=== PATIENT | female | born 1990 | race African-American/Black ===

== ENCOUNTER 2019-11-22 18:46 | Inpatient (IN) | payer SELFPAY ==
[~2019-11-22] VITALS: Ht 170.2 cm; Wt 104.0 kg
[2019-11-22 19:09] LABS: ARTERIAL BLD GAS O2 SATURATION 98.9 % (92-100); ARTERIAL BLD GAS TCO2 CT 23.3; ARTERIAL BLOOD GAS BASE EXCESS -3.3 (-2-2); ARTERIAL BLOOD GAS HCO3 22.1 meq/L (22-26); ARTERIAL BLOOD GAS PCO2 40.7 mmHg (35-45); ARTERIAL BLOOD GAS PO2 157.5 mmHg (80-100); ARTERIAL BLOOD GAS pH 7.35 (7.35-7.45)
[2019-11-22 19:23] LABS: ALANINE AMINOTRANSFERASE 18 U/L (4-34); ALBUMIN 3.7 gm/dL (3.5-5.0); ALKALINE PHOSPHATASE 52 U/L (50-136); ANION GAP 6 mmol/L (7-16); AST,SGOT 21 U/L (15-37); BILIRUBIN,TOTAL 0.4 mg/dL (0.0-1.0); BLOOD UREA NITROGEN 15 mg/dL (7-17); CALCIUM 7.7 mg/dL (8.4-10.2); CARBON DIOXIDE 22 mmol/L (22-30); CHLORIDE 110 mmol/L (98-107); CREATININE, serum 0.67 (0.52-1.25); GLUCOSE 120 mg/dL (74-106); LIPASE 105 U/L (23-300); POTASSIUM 3.3 mmol/L (3.4-5.0); SODIUM 139 mmol/L (137-145); TOTAL PROTEIN 6.6 gm/dL (6.4-8.2)
[2019-11-22 19:24] LABS: BASO % 0.4 % (0.0-2.0); EOS # 0.1 (0.0-0.7); GRAN # 3.5 (1.4-6.5); GRAN % 44.1 % (42.2-75.2); HEMOGLOBIN 10.6 g/dl (12.5-16.0); LYMPH # 3.6 (1.2-3.4); MEAN CELL VOLUME 89 fl (80.0-100.0); MEAN CORPUSCULAR HEMOGLOBIN 28 pg (27.0-31.0); MEAN CORPUSCULAR HGB CONC 31 g/dl (33.0-37.0); MEAN PLATELET VOLUME 9.8 fl (7.4-10.4); MONO # 0.7 (0.1-0.6); MONO % 8.2 % (1.7-9.3); PLATELET COUNT 374 K/mm3 (130-400); RED BLOOD COUNT 3.85 M/mm3 (4.10-5.30); REDCELL DISTRIBUTION WIDTH-CV 14.2 % (11.5-14.5)
[2019-11-22 19:35] LABS: TROPONIN-I < 0.012 ng/mL (0.000-0.035)
[2019-11-22 19:43] LABS: HEMATOCRIT 34.3 % (37.0-47.0)
[2019-11-22 19:48] LABS: INR 1.1 (0.8-3.0); PROTHROMBIN TIME 13.4 SECONDS (9.7-12.8)
[2019-11-22 22:08] VITALS: BP 144/43; PULSE 117; TEMP 98.6
--- NOTE | 2019-11-22 22:10 | NUR ---
Patient arrived from ER to medical floor at this time.
[2019-11-22] MEDS ORDERED: TYLENOL PM EXTR1 TA1 PO (22:19)
[2019-11-22] MEDS ORDERED: MULTI VITAMINS1 TAB PO (22:20)
--- NOTE | 2019-11-22 23:09 | NUR ---
Patient assessed. Peripheral IVs to bilateral ACs. Both sites without redness, warmth, swelling, and pain. Finished IV potassium. Denies SOB and dyspnea. Reports some tightness in chest, but overall much better. Currently on room air. Respirations even and unlabored. HRR. Telemetry in place: sinus tachycardia. Capillary refill less than 3 seconds. Non-tenting skin turgor. BSAx4. Abdomen soft and non-tender. No edema. Requested melatonin to help her sleep. Call placed to Dr. Buck, and new order received. Given as requested. Patient currently getting 1 L NS bolus per orders. Order received for general diet. Patient voices no questions, needs, or concerns at this time. Resting in bed with call light within reach.
[2019-11-23] VITALS: BP 158/50; PULSE 111; TEMP 98.2
--- NOTE | 2019-11-23 03:10 | NUR ---
Patient stated that her chest was feeling tighter. SPO2 100% RA. Respirations 26, shallow, labored. LS faint expiratory wheezing upper lobes. Called RT to give nebulizer treatment. Patient also stated that she was feeling anxious. Asked if she wanted PRN Ativan, and stated she did. Given as requested. Voices no further questions, needs, or concerns at this time. Receiving nebulizer treatment at this time. Call light is within reach.
[2019-11-23 03:38] VITALS: BP 130/52; PULSE 97; TEMP 98.6
--- NOTE | 2019-11-23 05:14 | NUR ---
Patient stated PRN Ativan and nebulizer treatment helped with chest. Patient is resting in bed with eyes closed at this time. Given snacks as requested.
[2019-11-23 06:25] LABS: COLLECTION METHOD CLEAN CATCH
[2019-11-23 06:34] LABS: PH 7 (5-8); URINE APPEARANCE Clear; URINE BACTERIA None Seen /hpf; URINE BILIRUBIN Negative (NEGATIVE); URINE BLOOD Negative (NEGATIVE); URINE COLOR Straw; URINE GLUCOSE Negative (NEGATIVE); URINE KETONE Negative (NEGATIVE); URINE LEUKOCYTE ESTERASE 2+ (NEGATIVE); URINE NITRATE Negative (NEGATIVE); URINE PROTEIN(semi-quant) Negative (NEGATIVE); URINE UROBILINOGEN Negative (NEGATIVE)
[2019-11-23 06:57] LABS: BASO % 0.1 % (0.0-2.0); EOS % 0.1 % (0-4.0); GRAN # 8.1 (1.4-6.5); GRAN % 89.7 % (42.2-75.2); HEMOGLOBIN 10.8 g/dl (12.5-16.0); LYMPH # 0.7 (1.2-3.4); LYMPH % 8.2 % (20.0-51.0); MEAN CELL VOLUME 89 fl (80.0-100.0); MEAN CORPUSCULAR HEMOGLOBIN 28 pg (27.0-31.0); MEAN CORPUSCULAR HGB CONC 32 g/dl (33.0-37.0); MEAN PLATELET VOLUME 9.5 fl (7.4-10.4); MONO # 0.1 (0.1-0.6); MONO % 1.6 % (1.7-9.3); PLATELET COUNT 323 K/mm3 (130-400); RED BLOOD COUNT 3.84 M/mm3 (4.10-5.30); REDCELL DISTRIBUTION WIDTH-CV 14.5 % (11.5-14.5)
[2019-11-23 07:01] LABS: HEMATOCRIT 34.1 % (37.0-47.0)
[2019-11-23 07:16] LABS: CALCIUM 8.6 mg/dL (8.4-10.2); CREATININE, serum 0.54 (0.52-1.25); POTASSIUM 4.3 mmol/L (3.4-5.0)
--- NOTE | 2019-11-23 10:53 | NUR ---
SANNA NOTE: PT AOX4. STEADY AMBULATION. REPORTS MILD TO MOD SOB WITH EXERTION. LCTA DIMINISHED. DENIES COUGH. REPORTS HEADACHE WITH HX OF MIGRAINES, DOC AWARE. NO OTHER CONCERNS
[2019-11-23 11:45] VITALS: BP 144/63; PULSE 103; TEMP 98.2
[2019-11-23] MEDS ORDERED: FLOVENT 44MCG I13 GM IH (12:36)
[2019-11-23] MEDS ORDERED: MEDROL 4MG DOSPA4 MG PO (12:36)
[2019-11-23] MEDS ORDERED: PROAIR HFA0.09 MG/AC IH (12:36)
--- NOTE | 2019-11-23 12:58 | NUR ---
Patient's nurse approached SW with concern about Pt not having insurance. SW contacted Patient by phone to complete intake for discharge planning. Patient currently lives in [place], and has been here for approximately 2 months. patient is employed with [employer], however she does not have insurance. patient did indicate that she had a DPOA, her sister Sabina [phone] who is also her care support and EMR. patient indicated that she did not have a PCP, nor did she had a place where she gets her medications at this time because she is new to the area. Patient did ask for assistance in locating a physician(She mentioned [facility]), medication information, fan mental health providers inthe area. SW printed off copies for [facility], [facility], [facility], and provided information about medical assistance for the area. LUCIA will continue to follow.
--- NOTE | 2019-11-23 13:45 | NUR ---
PT CALLED THIS NURSE STATING SHE IS EXPERIENCEING TOO MUCH ANXIETY BEING IN THE HOSPITAL AND IS UNABALE TO WITHSTAND BEING HERE WITHOUT FAMILY OR BOYFRIEND. RECNATED INITIAL DECISION TO REMAIN HOSPITALIZED AN DF/U WITH SCRAP CHARGER IN THE AM. PT IS AOX4. REFUSED PRN ATIVAN. STATES HEADACHE 09/22 AND STATES "I JUST WANT TO GO HOME BECAUSE I'VE BEEN THROUGH THIS BEFORE SINCE I WAS A CHILD AND CANNOT STAY IN HOSPITAL ALONE". DR MCCLENDON NOTIFIED AND WROTE DISMISSAL ORDERS, PAPER SCRIPTS AND WORK NOTE. PT REGULAR BREATHING. ASTHMA EXACERBATION RELIEVED. PAPERWORK REVIEWED WITH PT AND NO FURTHER NEEDS AT THIS TIME. PT STATES SHE WILL F/U WITH [facility].
== END 2019-11-23 13:49 | disposition home or self-care (01) | DRG 202 ==
LOC: COL.ER 18:46 → MEDICAL 19:05 → COL.ER 19:05 → MEDICAL 11-23 13:49
PROVIDERS: Emergency Medicine; ADMIT Family Medicine
DX: J45.901 Unspecified asthma with (acute) exacerbation (principal); E87.2 Acidosis; Z87.891 Personal history of nicotine dependence; R09.02 Hypoxemia; D64.9 Anemia, unspecified; R00.0 Tachycardia, unspecified; T48.6X5A Adverse effect of antiasthmatics, initial encounter; F41.9 Anxiety disorder, unspecified; F31.9 Bipolar disorder, unspecified; F43.10 Post-traumatic stress disorder, unspecified; E87.6 Hypokalemia; G43.909 Migraine, unspecified, not intractable, without status migrainosus
CPT/HCPCS: 99222-AI; 99239; J1650; J2060; J2920; J3475; J3480; J7030

== ENCOUNTER 2019-12-08 10:28 | Emergency (ER) | payer SELFPAY ==
[~2019-12-08] VITALS: Ht 170.2 cm; Wt 102.7 kg
[~2019-12-08 10:28] MED LIST: FLOVENT 44MCG I13 GM IH; MEDROL 4MG DOSPA4 MG PO; MULTI VITAMINS1 TAB PO; PROAIR HFA0.09 MG/AC IH; TYLENOL PM EXTR1 TA1 PO
[2019-12-08 10:33] VITALS: TEMP 98.3
[2019-12-08 11:08] LABS: COLLECTION METHOD CLEAN CATCH
[2019-12-08 11:13] LABS: BASO % 0.5 % (0.0-2.0); EOS # 0.1 (0.0-0.7); EOS % 1.1 % (0-4.0); GRAN # 2.8 (1.4-6.5); GRAN % 63.6 % (42.2-75.2); HEMATOCRIT 37.5 % (37.0-47.0); HEMOGLOBIN 11.7 g/dl (12.5-16.0); LYMPH # 1.2 (1.2-3.4); MEAN CELL VOLUME 89 fl (80.0-100.0); MEAN CORPUSCULAR HEMOGLOBIN 28 pg (27.0-31.0); MEAN CORPUSCULAR HGB CONC 31 g/dl (33.0-37.0); MEAN PLATELET VOLUME 8.8 fl (7.4-10.4); MONO # 0.3 (0.1-0.6); MONO % 6.3 % (1.7-9.3); PLATELET COUNT 338 K/mm3 (130-400); RED BLOOD COUNT 4.23 M/mm3 (4.10-5.30); REDCELL DISTRIBUTION WIDTH-CV 14.4 % (11.5-14.5)
[2019-12-08 11:22] LABS: BILIRUBIN,TOTAL 0.4 mg/dL (0.0-1.0); CALCIUM 8.9 mg/dL (8.4-10.2); CREATININE, serum 0.58 (0.52-1.25); POTASSIUM 3.9 mmol/L (3.4-5.0); TOTAL PROTEIN 7.2 gm/dL (6.4-8.2)
[2019-12-08 11:33] LABS: MUCOUS Present /lpf; PH 8 (5-8); URINE APPEARANCE Clear; URINE BACTERIA Rare /hpf; URINE BILIRUBIN Negative (NEGATIVE); URINE BLOOD 3+ (NEGATIVE); URINE COLOR Straw; URINE GLUCOSE Negative (NEGATIVE); URINE KETONE Negative (NEGATIVE); URINE LEUKOCYTE ESTERASE Negative (NEGATIVE); URINE NITRATE Negative (NEGATIVE); URINE PROTEIN(semi-quant) Negative (NEGATIVE); URINE UROBILINOGEN Negative (NEGATIVE)
[2019-12-08 13:00] VITALS: BP 122/89; PULSE 65
== END 2019-12-08 13:00 | disposition home or self-care (01) ==
LOC: COL.ER 10:28
PROVIDERS: Nurse Practitioner
DX: O20.0 Threatened abortion (principal); O99.341 Other mental disorders complicating pregnancy, first trimester; G43.909 Migraine, unspecified, not intractable, without status migrainosus; O99.511 Diseases of the respiratory system complicating pregnancy, first trimester; J45.909 Unspecified asthma, uncomplicated; Z3A.01 Less than 8 weeks gestation of pregnancy; Z79.51 Long term (current) use of inhaled steroids

== ENCOUNTER 2020-01-01 16:59 | Day surgery (SDC) | payer MEDICAID ==
[~2020-01-01] VITALS: Ht 170.2 cm; Wt 102.7 kg
[2020-01-01 17:19] LABS: BASO % 0.4 % (0.0-2.0); EOS # 0.1 (0.0-0.7); EOS % 1.3 % (0-4.0); GRAN # 2.9 (1.4-6.5); GRAN % 55.2 % (42.2-75.2); HEMATOCRIT 34.9 % (37.0-47.0); LYMPH # 1.8 (1.2-3.4); LYMPH % 34.9 % (20.0-51.0); MEAN CELL VOLUME 88 fl (80.0-100.0); MEAN CORPUSCULAR HEMOGLOBIN 28 pg (27.0-31.0); MEAN CORPUSCULAR HGB CONC 32 g/dl (33.0-37.0); MEAN PLATELET VOLUME 9.2 fl (7.4-10.4); MONO # 0.4 (0.1-0.6); MONO % 7.8 % (1.7-9.3); PLATELET COUNT 346 K/mm3 (130-400); RED BLOOD COUNT 3.96 M/mm3 (4.10-5.30); REDCELL DISTRIBUTION WIDTH-CV 13.7 % (11.5-14.5)
[2020-01-01 17:30] LABS: ALBUMIN 4.1 gm/dL (3.5-5.0); BILIRUBIN,TOTAL 0.3 mg/dL (0.0-1.0); CALCIUM 9.2 mg/dL (8.4-10.2); CREATININE, serum 0.56 (0.52-1.25); POTASSIUM 3.8 mmol/L (3.4-5.0); TOTAL PROTEIN 7.3 gm/dL (6.4-8.2)
[2020-01-01 17:58] LABS: COLLECTION METHOD CLEAN CATCH
[2020-01-01 18:05] LABS: PH 9 (5-8); SQUAMOUS EPITHELIAL 0-2 /hpf; URINE APPEARANCE Hazy; URINE BACTERIA None Seen /hpf; URINE BILIRUBIN Negative (NEGATIVE); URINE BLOOD 3+ (NEGATIVE); URINE COLOR Yellow; URINE GLUCOSE Negative (NEGATIVE); URINE KETONE Negative (NEGATIVE); URINE LEUKOCYTE ESTERASE Negative (NEGATIVE); URINE NITRATE Negative (NEGATIVE); URINE PROTEIN(semi-quant) Negative (NEGATIVE); URINE RBC >50 /hpf; URINE UROBILINOGEN Negative (NEGATIVE)
--- NOTE | 2020-01-01 22:40 | NUR ---
Pt to room 222 from PACU. Pt alert and oriented and starting to wake up from surgery. Report received from [facility]UP[facility]ERAP[facility]. Post op vitals set up. Abdominal incision X3 CDI with bandaids. IVF running through gravity. Plan of care explained to pt who verblaizes understanding. Questions answered. Call light within reach.
[2020-01-01 22:45] VITALS: BP 127/41; PULSE 92
[2020-01-01 23:00] VITALS: BP 139/72; PULSE 94
[2020-01-01 23:15] VITALS: BP 144/64; PULSE 76
[2020-01-01 23:30] VITALS: BP 137/72; PULSE 85
[2020-01-01 23:45] VITALS: BP 125/66; PULSE 62
[2020-01-02] VITALS (7 sets, daily range): BP systolic 101–140; BP diastolic 32–70; PULSE 60–81; TEMP 97.8–98.5
[2020-01-02 07:38] LABS: HEMOGLOBIN 10.3 g/dl (12.5-16.0)
[2020-01-02 07:39] LABS: HEMATOCRIT 32.5 % (37.0-47.0)
[2020-01-02] MEDS ORDERED: IBU600 MG PO (09:55)
[2020-01-02] MEDS ORDERED: PERCOCET 325 MG1 TA2 PO (09:55)
--- NOTE | 2020-01-02 17:03 | NUR ---
Taper Operator was contacted by RN who advised patient did not have a ride home this evening. SW responded and met with patient who advised she did not have money for a cab ride home and had no one else that could come get her. SW completed Taxi Voucher and contacted [employer] who will forklift picker patient in the ER entrance. No additional needs at this time.
--- NOTE | 2020-01-02 17:08 | NUR ---
1600 PATIENT UP TO BATHROOM, VOIDS. 1630 2 PERCOCET GIVEN WITH ZOFRAN 4 MG PO WITH WATER. 1700 MOTRIN 600 MG PO GIVEN. ALL DISCHARGE INSTRUCTIONS GIVEN TO PATIENT WITH VERBAL UNDERSTANDING. PATIENT STATES DOES NOT HAVE RIDE HOME. SOCIAL SERVICE AT BEDSIDE. VOUGER GIVEN FOR UBER RIDE. PATIENT HAS VERBAL UNDERSTANDING NOTED. 1715 PATIENT DISMISSED TO UBER BRAZING MACHINE OPERATOR VIA WHEELCHAIR AND STAFF.
== END 2020-01-02 17:16 | disposition home or self-care (01) ==
LOC: COL.ER 16:59 → OB 20:00 → SDCO 20:00 → OB 20:00 → SDCO 01-02 17:16 → OB 01-02 17:16
PROVIDERS: Emergency Medicine; Obstetrics & Gynecology
DX: O00.101 Right tubal pregnancy without intrauterine pregnancy (principal); J45.909 Unspecified asthma, uncomplicated; E66.9 Obesity, unspecified; Z79.51 Long term (current) use of inhaled steroids
CPT/HCPCS: OP; J0330; J0690; J1100; J1170; J1885; J2060; J2175; J2250; J2270; J2405; J2704; J2710; J3010; J7030; J7120

== ENCOUNTER 2020-01-04 06:07 | Emergency (ER) | payer MEDICAID ==
[~2020-01-04] VITALS: Ht 170.2 cm; Wt 102.7 kg
[~2020-01-04 06:07] MED LIST changes: +IBU600 MG PO; +PERCOCET 325 MG1 TA2 PO
[2020-01-04 06:18] VITALS: TEMP 98.4
[2020-01-04 06:20] LABS: COLLECTION METHOD CLEAN CATCH
[2020-01-04 06:25] LABS: BASO % 0.4 % (0.0-2.0); EOS # 0.1 (0.0-0.7); EOS % 1.5 % (0-4.0); GRAN # 2.2 (1.4-6.5); GRAN % 41.2 % (42.2-75.2); HEMOGLOBIN 10.5 g/dl (12.5-16.0); LYMPH # 2.6 (1.2-3.4); LYMPH % 49.9 % (20.0-51.0); MEAN CELL VOLUME 91 fl (80.0-100.0); MEAN CORPUSCULAR HEMOGLOBIN 28 pg (27.0-31.0); MEAN CORPUSCULAR HGB CONC 31 g/dl (33.0-37.0); MEAN PLATELET VOLUME 9.3 fl (7.4-10.4); MONO # 0.4 (0.1-0.6); MONO % 6.6 % (1.7-9.3); PLATELET COUNT 343 K/mm3 (130-400); RED BLOOD COUNT 3.76 M/mm3 (4.10-5.30); REDCELL DISTRIBUTION WIDTH-CV 14.3 % (11.5-14.5)
[2020-01-04 06:27] LABS: HEMATOCRIT 34.1 % (37.0-47.0)
[2020-01-04 06:34] LABS: CALCIUM 8.9 mg/dL (8.4-10.2); CREATININE, serum 0.64 (0.52-1.25); POTASSIUM 4.2 mmol/L (3.4-5.0)
[2020-01-04 07:03] LABS: BILIRUBIN,TOTAL 0.5 mg/dL (0.0-1.0); TOTAL PROTEIN 7.1 gm/dL (6.4-8.2)
[2020-01-04 07:13] LABS: MUCOUS Present /lpf; PH 5 (5-8); URINE APPEARANCE Hazy; URINE BACTERIA None Seen /hpf; URINE BILIRUBIN Negative (NEGATIVE); URINE BLOOD 3+ (NEGATIVE); URINE COLOR Yellow; URINE GLUCOSE Negative (NEGATIVE); URINE KETONE Negative (NEGATIVE); URINE LEUKOCYTE ESTERASE Negative (NEGATIVE); URINE NITRATE Negative (NEGATIVE); URINE PROTEIN(semi-quant) 1+ (NEGATIVE); URINE RBC >50 /hpf; URINE UROBILINOGEN Negative (NEGATIVE)
[2020-01-04] MEDS ORDERED: NAPROXEN 3375 MG/TAB PO (09:05)
[2020-01-04] MEDS ORDERED: PERCOCET 325 MG1 TA2 PO (09:05)
[2020-01-04] MEDS ORDERED: PHENERGAN 25 TA25 MG PO (09:05)
[2020-01-04] MEDS ORDERED: FLAGYL500 MG PO (09:36)
[2020-01-04 09:59] VITALS: BP 123/73; PULSE 61
== END 2020-01-04 10:03 | disposition home or self-care (01) ==
LOC: COL.ER 06:07
PROVIDERS: Emergency Medicine
DX: G89.18 Other acute postprocedural pain (principal); R10.31 Right lower quadrant pain; F43.10 Post-traumatic stress disorder, unspecified; J45.909 Unspecified asthma, uncomplicated; Z90.722 Acquired absence of ovaries, bilateral
CPT/HCPCS: J0780; J1170; J1885; J3010; J7030